=== PATIENT | female | born 1985 | race Two or more races ===

== ENCOUNTER 2016-06-22 02:40 | Observation (INO) | payer MEDICAID ==
[~2016-06-22] VITALS: Ht 177.8 cm; Wt 77.1 kg
[2016-06-22] MEDS ORDERED: SODIUM CHLORIDE 0.9% 1,000 ML IV ONE (03:22)
[2016-06-22 04:14] LABS: Hematocrit 42.7 % (36.0-46.0); Hemoglobin 14.1 g/dL (12.2-16.2); Mean Corpuscular Hgb Conc. 32.9 g/dL (32.0-36.0); Mean Corpuscular Volume 91.2 fL (80.0-100.0); Mean Platelet Volume 8.1 fL (7.4-10.4); Platelet Count (auto) 345 10^3/uL (140-450); Red Cell Distribution Width 12.9 % (11.6-16.0); SUSPECT VIEW TRANSMISSION
[2016-06-22 04:23] LABS: Prothrombin Time 10.8 sec (9.37-12.3)
[2016-06-22 04:24] LABS: Metamyelocytes % 0; Myelocytes % 0; Promyelocytes % 0; Reactive Lymphocytes 0
[2016-06-22 04:31] LABS: Albumin 4.4 g/dL (3.4-5.0); Anion Gap 13 (5-15); Aspartate Aminotransferase 43 U/L (15-37); BUN/Creatinine Ratio 10.2; Blood Urea Nitrogen 13 mg/dL (7-18); Calcium 9.2 mg/dL (8.5-10.1); Carbon Dioxide 25 mmol/L (21-32); Chloride 103 mmol/L (98-107); GFR African American 64 mL/min; GFR Non-African American 53 mL/min; Glucose 109 mg/dL (74-106); Potassium 3.5 mmol/L (3.5-5.1); Sodium 141 mmol/L (136-145)
[2016-06-22 04:37] LABS: Alkaline Phosphatase 85 U/L (45-117); Bilirubin, Total 0.7 mg/dL (0.2-1.0)
[2016-06-22 04:39] LABS: Urine Bilirubin Negative (Negative); Urine Blood Negative /uL (Negative); Urine Color Yellow (Yellow); Urine Glucose Normal (Normal); Urine Hyaline Cast MOD /lpf (0 - 2); Urine Mucus FEW (None Seen); Urine Nitrite Negative (Negative); Urine RBC 5 /hpf (0 - 4); Urine Squamous Epithelial Cell FEW /hpf (<5); Urine pH 5.5 (5.0-8.0)
[2016-06-22 04:39] LABS: Acetaminophen < 2.0 ug/mL (10-30)
[2016-06-22 04:43] LABS: Urine Ketone 1+ (Negative)
[2016-06-22 04:44] LABS: B-Type Natriuretic Peptide < 5.0 pg/mL (0-100); Temperature: 21.9 C (20.0-25.0)
[2016-06-22 04:51] LABS: Salicylate < 1.7 mg/dL (2.8-20.0)
[2016-06-22 05:29] LABS: White Blood Cell 13.3 10^3/uL (4.4-10.8)
[2016-06-22] MEDS ORDERED: NALOXONE HCL 0.4 MG/ML VIAL IV ONE (06:00)
[2016-06-22 08:43] LABS: Large Platelets FEW; Platelet Estimate Adequate
[2016-06-22 13:57] VITALS: BP 106/69
== END 2016-06-22 15:27 | disposition home or self-care (01) | DRG 812 ==
LOC: EDBD 02:40 → ER 02:47 → OVERFLOW 03:29 → ER 15:27
PROVIDERS: ADMIT Emergency Medicine; ATTEND Emergency Medicine
DX: T43.225A Adverse effect of selective serotonin reuptake inhibitors, initial encounter (principal); F32.9 Major depressive disorder, single episode, unspecified; Y92.89 Other specified places as the place of occurrence of the external cause; F41.9 Anxiety disorder, unspecified; Z82.49 Family history of ischemic heart disease and other diseases of the circulatory system; Z83.3 Family history of diabetes mellitus
CPT/HCPCS: 36415; 70450; 71010; 80053; 80329; 81001; 81025; 83880; 84484; 85007; 85027; 85610; 85730; 93005; 96361; 96374; 99285; G0378; G0434; J2310; J7030